=== PATIENT | male | born 1950 | race Caucasian/White ===

== ENCOUNTER → 2018-12-09 | Outpatient (CLI) | payer MEDICARE | END | disposition home or self-care (01) | LOC: LAB SHORT 08:12 → PLD 08:12 | DX: L57.0 Actinic keratosis (principal) | CPT/HCPCS: 88305 ==

== ENCOUNTER → 2021-03-04 | Outpatient (CLI) | payer MEDICARE | LOC: LAB SHORT 07:46 → LAB 07:46 | DX: D49.2 Neoplasm of unspecified behavior of bone, soft tissue, and skin (principal); D23.5 Other benign neoplasm of skin of trunk; L82.1 Other seborrheic keratosis; L57.0 Actinic keratosis | CPT/HCPCS: 88305 ==